=== PATIENT | male | born 1975 | race African-American/Black ===

== ENCOUNTER 2018-03-15 08:19 | Emergency (ER) | payer BC ==
[2018-03-15 08:24] VITALS: BP 144/99; PULSE 71; TEMP 98.6; BMI 46.9
--- NOTE | 2018-03-15 08:42 | PDOC ---
History of Present Illness - General Chief Complaint: Pain, Acute Stated Complaint: PAIN/ RT SIDE, LEG Time Seen by Provider: 03/15/18 08:42 History Source: Patient Exam Limitations: No Limitations - History of Present Illness Initial Comments: 03/15/18 09:18 Chief complaint: Leg pain Patient is a 42-year-old male with a history of hypertension who states over the past week. Patient states he's working out at the gym and he noticed that he 's having pain down his right leg starting from his buttocks which now extends down into his foot. No numbness, swelling or feeling ill. No history of similar. Patient only has pain when he sits. Incontinence or saddle anesthesia. Patient is ambulatory. GENERAL/CONSTITUTIONAL: No fever, weakness. dizziness HEAD, EYES, EARS, NOSE AND THROAT: No change in vision. No ear pain or discharge. No sore throat. CARDIOVASCULAR: No chest pain RESPIRATORY: No shortness of breath or cough GASTROINTESTINAL: No pain, nausea, vomiting, diarrhea or constipation GENITOURINARY: No dysuria MUSCULOSKELETAL: No neck or back pain, + right leg SKIN: No rash NEUROLOGIC: No headache, vertigo, loss of consciousness, or loss of sensation. GENERAL: The patient is awake, alert, and fully oriented, in no acute distress. HEAD: Normal with no signs of trauma. EYES: Pupils equal, round and reactive to light, sclera anicteric, conjunctiva clear. ENT: pharynx: no erythema, no exudate, uvula midline NECK: supple CHEST: clear, nontender, rr ABD: soft, nontender EXTREMITIES: Normal range of motion, no edema. Neurovascular intact, strength 5 out of 5 bilaterally NEUROLOGICAL: Normal speech, normal gait. SKIN: Warm, Dry Past History - Past Medical History Allergies/Adverse Reactions: Allergies Allergy/AdvReac Type Severity Reaction Status Date / Time No Known Allergies Allergy Verified 07/10/16 07:40 Home Medications: Ambulatory Orders Meloxicam [Mobic] 15 mg PO DAILY PRN #14 tablet 03/15/18 Oxycodone HCl/Acetaminophen [Percocet 5-325 mg Tablet] 1 - 2 tab PO Q4H PRN #20 tablet MDD 12 03/15/18 Thyroid Disease: No - Suicide/Smoking/Psychosocial Hx Smoking History: Never smoked Hx Alcohol Use: No Drug/Substance Use Hx: No Substance Use Type: None *Physical Exam - Vital Signs Last Vital Signs Temp Pulse Resp BP Pulse Ox 98.6 F 71 20 144/99 0 L 03/15/18 08:21 03/15/18 08:21 03/15/18 08:21 03/15/18 08:21 03/15/18 08:21 Medical Decision Making - Medical Decision Making 03/15/18 09:20 Patient with right buttocks and leg pain consistent with sciatica, no numbness, weakness, saddle anesthesia or incontinence. No swelling, no pain in the calf otherwise feels well. We will medicate and referred to orthopedist *DC/Admit/Observation/Transfer Diagnosis at time of Disposition: Sciatic leg pain - Discharge Dispostion Disposition: HOME Condition at time of disposition: Stable Decision to Admit order: No - Prescriptions Prescriptions: Meloxicam [Mobic] 15 mg PO DAILY PRN #14 tablet PRN Reason: Pain Oxycodone HCl/Acetaminophen [Percocet 5-325 mg Tablet] 1 - 2 tab PO Q4H PRN #20 tablet MDD 12 PRN Reason: Pain - Referrals Referrals: Trixie Barkley MD [Primary Care Provider] - Florencio Villar MD [Staff Physician] - - Patient Instructions Printed Discharge Instructions: DI for Sciatica Additional Instructions: No heavy lifting or bending Apply ice to the area 20 minutes every 2 hours for the next 2 days Continue taking Mobic daily for pain. If still in pain he can also take Percocet one to 2 tablets every 4 hours. Return to the nearest ER if numbness, weakness, severe pain, problems with urinating or having bowel movements. Call orthopedist today for an appointment for further evaluation - Post Discharge Activity Forms/Work/School Notes: Back to Work
[2018-03-15] MEDS ORDERED: KETOROLAC TROMETHAMINE 60 MG/2 ML VIAL IM ONE (08:49)
[2018-03-15] MEDS ORDERED: KETOROLAC TROMETHAMINE 60 MG/2 ML VIAL ONE (08:54)
== END 2018-03-15 09:55 | disposition home or self-care (01) ==
LOC: JERFT 08:19
PROC: 3E0233Z Introduction of Anti-inflammatory into Muscle, Percutaneous Approach (ICD-10-PCS; principal; 2018-03-15)
DX: M54.31 Sciatica, right side (principal); I10 Essential (primary) hypertension
CPT/HCPCS: 99281-25

== ENCOUNTER 2019-08-01 07:49 | Emergency (ER) | payer BC ==
[2019-08-01 07:59] VITALS: BP 123/64; PULSE 83; TEMP 98.2; BMI 47.4
--- NOTE | 2019-08-01 08:40 | PDOC ---
History of Present Illness - General Chief Complaint: Edema Stated Complaint: RIGHT FOOT SWELLING,GUM PAIN Time Seen by Provider: 08/01/19 08:27 History Source: Patient Exam Limitations: Clinical Condition - History of Present Illness Initial Comments: 08/01/19 08:33 Patient with no significant past medical history presenting with complaint of 4- day history of swelling to right ankle and foot without trauma or injury. Patient also reports swelling to left lower gums for 2 days now with pain to back of left lower tooth. Denies fever, chills, sore throat. Denies history of CHF, hypertension or diabetes. Denies history of peripheral arterial disease. Patient did not take anything for symptoms. Denies numbness or tingling sensation to right foot. Denies weakness to right foot. Denies calf muscle pain Is this a multiple visit Asthma Patient?: No Timing/Duration: other (4 days) Past History - Past Medical History Allergies/Adverse Reactions: Allergies Allergy/AdvReac Type Severity Reaction Status Date / Time No Known Allergies Allergy Verified 07/10/16 07:40 Home Medications: Ambulatory Orders Amox-Tr/K Cl [Augmentin - 875Mg Tablet] 1 tab PO BID #14 tablet 08/01/19 Losartan 50Mg/Hctz 12.5MG [Hyzaar -] 1 tab PO DAILY #30 tablet 08/01/19 COPD: No Thyroid Disease: No - Immunization History Immunization Up to Date: No - Psycho Social/Smoking Cessation Hx Smoking History: Never smoked Have you smoked in the past 12 months: No Information on smoking cessation initiated: No Hx Alcohol Use: No Drug/Substance Use Hx: No Substance Use Type: None Review of Systems - Review of Systems Able to Perform ROS?: Yes Is the patient limited Khmer proficient: No Constitutional: No: Chills, Fever, Malaise HEENTM: Yes: Symptoms Reported, See HPI, Dental Problems (pain to left lower gum ), Mouth Swelling (swelling to left lower gums). No: Eye Pain, Blurred Vision, Tearing, Recent change in vision, Double Vision, Cataracts, Ear Pain, Ocular Prothesis, Ear Discharge, Nose Pain, Nose Congestion, Tinnitus, Nose Bleeding, Hearing Loss, Throat Pain, Throat Swelling, Mouth Pain, Difficulty Swallowing, Other Respiratory: No: Symptoms reported, See HPI, Cough, Orthopnea, Shortness of Breath, SOB with Exertion, SOB at Rest, Stridor, Wheezing, Productive cough, Hemoptysis, Other Cardiac (ROS): No: Symptoms Reported, See HPI, Chest Pain, Edema, Irregular Heart Rate, Lightheadedness, Palpitations, Syncope, Chest Tightness, Other ABD/GI: No: Nausea, Vomiting Musculoskeletal: Yes: Symptoms Reported, See HPI, Joint Swelling (right ankle and foot). No: Joint Pain, Muscle Pain, Muscle Weakness Integumentary: Yes: Symptoms Reported, See HPI, Other (swelling to right foot) Neurological: No: Symptoms reported, Headache, Numbness, Paresthesia, Tingling All Other Systems: Reviewed and Negative *Physical Exam - Vital Signs Last Vital Signs Temp Pulse Resp BP Pulse Ox 98.2 F 83 18 123/64 98 08/01/19 07:55 08/01/19 07:55 08/01/19 07:55 08/01/19 07:55 08/01/19 07:55 - Physical Exam Comments: 08/01/19 08:38 GENERAL: Well developed, well nourished. Awake and alert. No acute distress. HEENT: moderate swelling to left lower peridontal of left lower premolars and back molars. no abscess or wound to site. no erythema to gums. Normocephalic, atraumatic. PERRLA, EOMI. No conjunctival pallor. Sclera are non-icteric. Moist mucous membranes. Oropharynx is clear. NECK: Supple. Full ROM. CARDIOVASCULAR: Regular rate and rhythm. No murmurs, rubs, or gallops. Distal pulses are 2+ and symmetric. PULMONARY: No evidence of respiratory distress. Lungs clear to auscultation bilaterally. No wheezing, rales or rhonchi. MUSCULOSKELETAL Normal range of motion at all joints. moderate swelling to right lower leg, ankle and foot. no calf tenderess EXTREMITIES: moderate edema to right ankle and foot. left LE normal. No cyanosis. No clubbing. No calf tenderness. SKIN: Warm and dry. Normal capillary refill. No rashes. NEUROLOGICAL: Alert, awake, appropriate. Gait is normal without ataxia. PSYCHIATRIC: Cooperative. Good eye contact. Appropriate mood General Appearance: Yes: Nourished, Appropriately Dressed. No: Apparent Distress ED Treatment Course - RADIOLOGY Radiology Studies Ordered: Category Date Time Status ANKLE & FOOT-RIGHT* [RAD] Stat Radiology 08/01/19 08:32 Ordered Medical Decision Making - Medical Decision Making 08/01/19 08:40 Patient with no significant past medical history presenting with complaint of 4- day history of swelling to right ankle and foot without trauma or injury. Patient also reports swelling to left lower gums for 2 days now with pain to back of left lower tooth. Denies fever, chills, sore throat. Denies history of CHF, hypertension or diabetes. Denies history of peripheral arterial disease. Patient did not take anything for symptoms. Denies numbness or tingling sensation to right foot. Denies weakness to right foot. Denies calf muscle pain Exam significant for moderate swelling to the right ankle, foot and distal leg. No cough muscle tenderness. Normal pulses. No skin cyanosis. Pitting edema of right foot. Negative Homans sign. Mild swelling to left lower peridental lower premolars and back left lower molars. No abscesses or erythema to gums. Symptoms likely ankle sprain versus peripheral vascular disease causing right lower extremity edema. Swelling of gums consistent with periodontal inflammation. X-ray of right foot and ankle ordered to rule out acute fracture pathology. Will consider duplex of right lower extremity if negative x-ray to rule out vascular etiology of swelling. 08/01/19 08:51 Patient does admit that problem has been ongoing for many years now which has been intermittent and being treated with hydrochlorothiazide and losartan medication will cause the swelling to go down but come back again after few months. Patient reported he was diagnosed in an urgent care and given medication but has not followed up with any vascular specialist to find out the cause of the problem. Duplex ultrasound ordered to rule out DVT or vascular problem the patient will be referred to vascular specialist for follow-up work- up and management of chronic peripheral edema. Patient reported has only been taking the prescribed losartan and hydrochlorothiazide sporadically when his leg started to swell up and stopped taking it when the swelling goes down. 08/01/19 10:04 Patient report ran out of hydrochlorothiazide medication. X-ray of right foot and ankle shows no acute pathology except soft tissue swelling. Duplex ultrasound of right lower extremity shows no DVT or Bolivar's cyst. Patient stable for discharge on Augmentin antibiotics for periodontitis. I have asked for losartan with hydrochlorothiazide signs for leg swelling which is usually relieved with this medication. Referral given to vascular for follow-up management of recurrent veins peripheral edema. Patient advised to follow-up with dentist for gum swelling. Plan discussed with patient patient agrees to plan. 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 To prescribe antibiotics for gum infection and medication to help with leg swelling. Follow-up with referred vascular specialist Dr. Urban. Follow-up with dentist as discussed with gum swelling. - Post Discharge Activity
--- NOTE | 2019-08-03 17:18 | PDOC ---
Patient Follow-up (Call Back) - Post ED Follow - Up Condition at time of discharge: Stable Disposition at time of original discharge: HOME Reason for Call Back: Complaint/Condition F/U (Pt states that the pharmacy has a back order for losartan/hctz combination. States that the pharmacy has the medications separately. Sent over new order for losartan 50mg and Hctz12.5 as separate medications.)
== END 2019-08-01 10:05 | disposition home or self-care (01) ==
LOC: JERFT 07:49
DX: M79.89 Other specified soft tissue disorders (principal); K05.6 Periodontal disease, unspecified
CPT/HCPCS: 73610-TC-RT-FY; 73630-TC-RT-FY; 93971-TC; 99281-25

== ENCOUNTER 2020-01-24 16:43 | Emergency (ER) | payer BC ==
[2020-01-24 16:58] VITALS: BP 124/85; PULSE 91; TEMP 99.2; BMI 48.8
--- NOTE | 2020-01-24 17:33 | PDOC ---
History of Present Illness - General Chief Complaint: Edema Stated Complaint: SWOLLEN LEG Time Seen by Provider: 01/24/20 17:10 History Source: Patient Exam Limitations: No Limitations - History of Present Illness Initial Comments: 01/24/20 17:29 Patient is a 44-year-old male with a history of hypertension who presents to the ED with complaint of right lower extremity swelling and posterior calf firmness for the last 5 to 6 weeks. He states this is happened to him before, he was seen in the ED and had an ultrasound several months ago. He was told that the ultrasound was negative. He followed up with his primary doctor and his foot doctor. He was put on blood pressure medication and a diuretic. He states his right lower extremity began to swell again 5 or 6 weeks ago. He stopped taking his diuretic several months ago. He denies any shortness of breath or chest pain. He denies any recent long travel. He does admit to sitting down most of his workday. Past History - Past Medical History Allergies/Adverse Reactions: Allergies Allergy/AdvReac Type Severity Reaction Status Date / Time No Known Allergies Allergy Verified 01/24/20 16:59 Home Medications: Ambulatory Orders Amox-Tr/K Cl [Augmentin - 875Mg Tablet] 1 tab PO BID #14 tablet 08/01/19 Losartan 50Mg/Hctz 12.5MG [Hyzaar -] 1 tab PO DAILY #30 tablet 08/01/19 Hydrochlorothiazide [Hctz -] 12.5 mg PO DAILY #30 cap 08/03/19 Losartan Potassium 50 mg PO DAILY #30 tablet 08/03/19 COPD: No Thyroid Disease: No - Immunization History Immunization Up to Date: No - Psycho Social/Smoking Cessation Hx Smoking History: Never smoked Have you smoked in the past 12 months: No Hx Alcohol Use: No Drug/Substance Use Hx: No Substance Use Type: None Review of Systems - Review of Systems Comments:: 01/24/20 17:30 - Review of Systems Able to Perform ROS?: Yes Constitutional: No: Fever, Chills, Loss of Appetite, Night Sweats, Weakness HEENTM: No: Eye Pain, Vision changes, Ear Pain, Throat Pain, Throat Swelling, Mouth Pain, Difficulty Swallowing Respiratory: No: Cough, Shortness of Breath, Wheezing, Sputum Production Cardiac (ROS): No: Chest Pain, Chest Tightness, Palpitations, Irregular Heart Beat, Edema ABD/GI: No: Nausea, Vomiting, Abdominal Pain, Diarrhea : No Dysuria, No Hematuria, No Frequency, No Urgency Musculoskeletal: No: Muscle Pain, Back Pain, Joint Pain, Muscle Weakness, Neck Pain; positive right lower extremity edema and posterior calf pain Integumentary: No: Lesions, Rash Neurological: No: Headache, Numbness, Tingling, Weakness, Speech Difficulties *Physical Exam - Vital Signs Last Vital Signs Temp Pulse Resp BP Pulse Ox 99.2 F 91 H 16 124/85 97 01/24/20 16:52 01/24/20 16:52 01/24/20 16:52 01/24/20 16:52 01/24/20 16:52 - Physical Exam 01/24/20 17:30 - Physical Exam General Appearance: Nourished, Appropriately Dressed, No Distress Neck: Supple, No Lymphadenopathy (R), No Lymphadenopathy (L), No Rigidity, No Decreased range of motion Respiratory/Chest: Lungs Clear, Normal Breath Sounds. No Respiratory Distress, No Accessory Muscle Use Cardiovascular: Regular Rhythm, Regular Rate, S1, S2 Gastrointestinal/Abdominal: Normal Bowel Sounds, Soft. Non-tender, No Guarding, No Rebound, No Rigidity Musculoskeletal: Normal Inspection. No Decreased Range of Motion; right lower extremity with 3+ pitting edema. Left lower extremity with 2+ pitting edema. There is a firm area with chronic skin changes to the posterior right calf with moderate tenderness to palpation. There is no surrounding cellulitis. Extremity: Normal Capillary Refill, Normal Inspection Integumentary: Normal Color, Dry. 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 Plan: -Right lower extremity Doppler ordered to rule out DVT -Patient has been made aware that he should wear compression stockings being that he sits most of the day and he has bilateral pedal edema 01/24/20 18:27 The patient has been made aware that his ultrasound study is negative for acute DVT. He has also been made aware of the masslike region in his right thigh that he should have followed up by his primary doctor. He has been given a copy of his ultrasound study. The patient has been encouraged to wear compression stockings particularly while working. He should elevate his legs as often as possible once home. He should also take his diuretic as prescribed and he states he started again 3 days ago. He should follow-up with his primary doctor within 1 to 2 days for repeat evaluation. He understands and agrees with this treatment plan and he is stable for discharge. Discharge - Discharge Information Problems reviewed: Yes Clinical Impression/Diagnosis: Lower extremity edema Condition: Stable Disposition: HOME - Follow up/Referral Referrals: Trixie Barkley MD [Primary Care Provider] - 2 Days - Patient Discharge Instructions Patient Printed Discharge Instructions: DI for Peripheral Edema -- Bilateral Additional Instructions: Elevate your legs as much as possible. You should consider wearing compression stockings as this will help with your lower extremity edema. Follow-up with your primary doctor for repeat evaluation. Be sure to discuss with your primary doctor the masslike density that was seen on ultrasound for possible MRI. Continue to take your water pill as prescribed as this will also help with the swelling in your legs. - Post Discharge Activity Work/Back to School Note: Back to Work
== END 2020-01-24 18:30 | disposition home or self-care (01) ==
LOC: JERFT 16:43
DX: R60.0 Localized edema (principal)
CPT/HCPCS: 93971-TC; 99283-25

== ENCOUNTER 2022-02-01 01:25 | Inpatient (IN) | payer BC, OTHER ==
[2022-02-01 02:46] LABS: PH,URINE 5.5 (5.0-8.0); URINE APPEARANCE CLEAR; URINE BILIRUBIN NEGATIVE (NEGATIVE); URINE COLOR YELLOW; URINE GLUCOSE (UA) 3+ (NEGATIVE); URINE KETONE NEGATIVE (NEGATIVE); URINE LEUK ESTERASE NEGATIVE (NEGATIVE); URINE NITRITE NEGATIVE (NEGATIVE); URINE PROTEIN NEGATIVE (NEGATIVE); URINE UROBILINOGEN 0.2 mg/dL (0.2-1.0)
[2022-02-01] MEDS ORDERED: LACTATED RINGERS SOLUTION 1000 ML INFUS.BAG IV ONE (03:06)
[2022-02-01 03:26] LABS: VENOUS BASE EXCESS 1.2 mmol/L (-2-2); VENOUS O2 SATURATION 47.1 % (70-80); VENOUS PCO2 53.3 mmHg (38-52); VENOUS PH 7.34 (7.310-7.410)
[2022-02-01 03:30] LABS: BASO % 0.7 % (0-2.0); EOS % 0.5 % (0-4.5); HEMATOCRIT 41.2 % (35.4-49); HEMOGLOBIN 13.7 GM/dL (11.7-16.9); LYMPH % 34.5 % (8-40); MCH 25.6 pg (25.7-33.7); MCHC 33.1 g/dl (32.0-35.9); MEAN CELL VOLUME 77.1 fl (80-96); MEAN PLT VOLUME 9.9 fl (7.5-11.1); MONO % 6.8 % (3.8-10.2); NEUT % 57.5 % (42.8-82.8); PLATELET COUNT 194 10^3/uL (134-434); RBC 5.35 M/mm3 (4.00-5.60); RDW 16.3 % (11.9-15.9); WHITE BLOOD COUNT 10.1 K/mm3 (4.0-10.0)
[2022-02-01 03:47] LABS: CHLORIDE 98 mmol/L (98-107); SODIUM 136 mmol/L (136-145)
[2022-02-01 03:49] LABS: CALCIUM 9.2 mg/dL (8.5-10.1)
[2022-02-01 03:50] LABS: ALBUMIN 3.8 g/dl (3.4-5.0); ANION GAP 8 MMOL/L (8-16); BLOOD UREA NITROGEN 16.5 mg/dL (7-18); CO2 29 mmol/L (21-32)
[2022-02-01 03:53] LABS: CREATININE 1.4 mg/dL (0.55-1.3); SGOT/AST 39 U/L (15-37); SGPT/ALT 66 U/L (13-61)
[2022-02-01 03:55] LABS: BILIRUBIN,TOTAL 0.3 mg/dL (0.2-1); TOT PROT 8.8 g/dl (6.4-8.2)
[2022-02-01 03:56] LABS: ALK PHOS 114 U/L (45-117)
[2022-02-01 05:18] LABS: GLUCOSE,RANDOM 526 mg/dL (74-106)
[2022-02-01] MEDS ORDERED: INSULIN (NOVOLOG) ASPART 100 UNITS/ML 10ML VIAL SQ ONE (05:58)
[2022-02-01] MEDS: INSULIN (NOVOLOG) ASPART 100 UNITS/ML 10ML VIAL SQ SCH ×2 (10:23→17:02)
[2022-02-01] MEDS: ENOXAPARIN NA (PORCINE) 40 MG/0.4 ML DISP.SYRIN SQ SCH (10:24)
[2022-02-01] MEDS: INSULIN (LEVEMIR) 100 UNITS/ML UNITS SQ SCH (21:50)
[2022-02-02] MEDS: INSULIN (LEVEMIR) 100 UNITS/ML UNITS SQ SCH ×2 (06:45→21:41)
[2022-02-02] MEDS: INSULIN (NOVOLOG) ASPART 100 UNITS/ML 10ML VIAL SQ SCH ×2 (06:47→11:29)
[2022-02-02] MEDS ORDERED: SODIUM CHLORIDE 1,000 ML IV SCH (07:30)
[2022-02-02 08:29] LABS: BASO % 0.8 % (0-2.0); EOS % 0.8 % (0-4.5); HEMATOCRIT 39.8 % (35.4-49); HEMOGLOBIN 13.2 GM/dL (11.7-16.9); LYMPH % 37.8 % (8-40); MCH 25.4 pg (25.7-33.7); MCHC 33.1 g/dl (32.0-35.9); MEAN CELL VOLUME 76.8 fl (80-96); MEAN PLT VOLUME 9.9 fl (7.5-11.1); MONO % 6.2 % (3.8-10.2); NEUT % 54.4 % (42.8-82.8); PLATELET COUNT 180 10^3/uL (134-434); RBC 5.18 M/mm3 (4.00-5.60); RDW 15.8 % (11.9-15.9); WHITE BLOOD COUNT 8.5 K/mm3 (4.0-10.0)
[2022-02-02 08:38] LABS: ALBUMIN 3.7 g/dl (3.4-5.0); BLOOD UREA NITROGEN 10.1 mg/dL (7-18); MAGNESIUM 1.9 mg/dL (1.8-2.4)
[2022-02-02 08:39] LABS: CALCIUM 8.5 mg/dL (8.5-10.1)
[2022-02-02 08:40] LABS: CREATININE 1.1 mg/dL (0.55-1.3)
[2022-02-02 08:41] LABS: PHOSPHOROUS 3.5 mg/dL (2.5-4.9)
[2022-02-02 08:42] LABS: TOT PROT 7.7 g/dl (6.4-8.2)
[2022-02-02] MEDS: ENOXAPARIN NA (PORCINE) 40 MG/0.4 ML DISP.SYRIN SQ SCH (09:56)
[2022-02-02 14:50] VITALS: BMI 50.3
[2022-02-02] MEDS: INSULIN SLIDING SCALE (NOVOLOG) 1 VIAL SQ SCH (16:14)
[2022-02-03] MEDS: INSULIN (LEVEMIR) 100 UNITS/ML UNITS SQ SCH (06:06)
[2022-02-03] MEDS: INSULIN SLIDING SCALE (NOVOLOG) 1 VIAL SQ SCH ×3 (06:06→16:34)
[2022-02-03 07:48] LABS: BASO % 0.6 % (0-2.0); HEMATOCRIT 37.7 % (35.4-49); HEMOGLOBIN 12.3 GM/dL (11.7-16.9); LYMPH % 34.2 % (8-40); MCH 25.4 pg (25.7-33.7); MCHC 32.8 g/dl (32.0-35.9); MEAN CELL VOLUME 77.4 fl (80-96); MEAN PLT VOLUME 9.8 fl (7.5-11.1); MONO % 7.4 % (3.8-10.2); NEUT % 56.8 % (42.8-82.8); PLATELET COUNT 174 10^3/uL (134-434); RBC 4.86 M/mm3 (4.00-5.60); WHITE BLOOD COUNT 8.1 K/mm3 (4.0-10.0)
[2022-02-03 08:06] LABS: CALCIUM 8.5 mg/dL (8.5-10.1)
[2022-02-03 08:07] LABS: BLOOD UREA NITROGEN 9.1 mg/dL (7-18)
[2022-02-03] MEDS: metFORMIN HCL 500 MG TABLET (FP) PO SCH ×2 (09:29→16:34)
[2022-02-03] MEDS: ENOXAPARIN NA (PORCINE) 40 MG/0.4 ML DISP.SYRIN SQ SCH (09:29)
[2022-02-03] MEDS ORDERED: INSULIN (LEVEMIR) 100 UNITS/ML UNITS SQ ONE (09:45)
[2022-02-03] MEDS ORDERED: LISINOPRIL 10 MG TABLET PO SCH (10:00)
[2022-02-03 14:58] VITALS: BP 124/85; PULSE 84; TEMP 98.3
[2022-02-03] MEDS ORDERED: INSULIN (LEVEMIR) 100 UNITS/ML UNITS SQ SCH (22:00)
== END 2022-02-03 18:32 | disposition home or self-care (01) | DRG 420 ==
LOC: JER 01:25 → JERBED 04:01 → J7W 09:31
PROVIDERS: ADMIT Internal Medicine; ATTEND Internal Medicine
DX: E11.65 Type 2 diabetes mellitus with hyperglycemia (principal); N17.9 Acute kidney failure, unspecified; E66.01 Morbid (severe) obesity due to excess calories; Z68.41 Body mass index [BMI] 40.0-44.9, adult; R63.1 Polydipsia; R35.89 Other polyuria
CPT/HCPCS: 36415; 71046-TC-FY; 80048; 80053; 81003; 82010; 82803; 82962; 83036; 83735; 84100; 85025; 87086; 93005; 93010; 99285-25; C9803-CS; U0003; U0005

== ENCOUNTER 2022-05-03 11:50 | Emergency (ER) | payer OTHER ==
[2022-05-03 12:19] VITALS: BP 117/76; PULSE 72; TEMP 98.6; BMI 48.8
== END 2022-05-03 17:52 | disposition home or self-care (01) ==
LOC: JERFT 11:50 → JER 11:50 → JERFT 17:52
DX: M79.605 Pain in left leg (principal)
CPT/HCPCS: 73610-TC-LT-FY; 93971-TC; 99284-25

== ENCOUNTER 2022-12-13 19:27 | Emergency (ER) | payer OTHER ==
[2022-12-13 19:42] VITALS: BP 141/72; PULSE 80; RESP 18; TEMP 98.3; BMI 47.4
== END 2022-12-14 02:16 | disposition home or self-care (01) ==
LOC: JERFT 19:27
DX: S89.91XA Unspecified injury of right lower leg, initial encounter (principal); X50.9XXA Other and unspecified overexertion or strenuous movements or postures, initial encounter
CPT/HCPCS: 73590-TC-RT-FY; 93971-TC; 99284-25

== ENCOUNTER 2022-12-26 10:29 | Emergency (ER) | payer OTHER ==
[2022-12-26 11:02] VITALS: BMI 48.8
[2022-12-26 15:26] VITALS: BP 136/74; PULSE 76; RESP 18; TEMP 98.3
== END 2022-12-26 15:43 | disposition home or self-care (01) ==
LOC: JER 10:29
DX: R60.0 Localized edema (principal)
CPT/HCPCS: 93971-TC; 99284-25

== ENCOUNTER 2023-04-10 16:21 | Emergency (ER) | payer OTHER ==
[2023-04-10 16:45] VITALS: BP 140/85; PULSE 83; RESP 18; TEMP 98.2; BMI 43.2
== END 2023-04-10 17:43 | disposition home or self-care (01) ==
LOC: JERFT 16:21
DX: M79.671 Pain in right foot (principal); R21 Rash and other nonspecific skin eruption; L30.9 Dermatitis, unspecified; I87.2 Venous insufficiency (chronic) (peripheral); R22.41 Localized swelling, mass and lump, right lower limb
CPT/HCPCS: 99283-25